=== PATIENT | female | born 1995 | race Caucasian/White ===

== ENCOUNTER 2017-09-16 07:00 | Day surgery (SDC) | payer OTHER ==
[~2017-09-16 07:00] MED LIST: BACTRIM DS 8001 TAB PO; HYDROXYZINE 25M25 MG PO; MOTRIN600 M1 PO; NUVARING1 ICR VG; PYRIDIUM100 MG PO; SERTRALINE 50MG50 MG PO; ZANTAC 150150 MG PO
--- NOTE | 2017-09-16 08:16 | Operative Note ---
Upper GI Endoscopy Procedure date: 09/16/17 Date of : [birth year] Procedure:Upper GI Endoscopy Esophagogastroduodenoscopy with cold biopsies Indications: Ms. Amador is a 22-year-old female who is here for diagnostic upper endoscopy. She has had bloating and generalized abdominal pain with dyspepsia. She has had nausea, early satiety, lack of appetite and a 16 pound weight loss. She formerly had RIGHT upper quadrant abdominal pain. She had a unremarkable ultrasound of the abdomen and gallbladder. She formerly had some bright red rectal bleeding which stopped. She was taking omeprazole. She reports no heartburn or reflux. She has had no belching or dysphagia. She reports no melena. She did improve with the addition of MiraLAX plus Citrucel fiber bowel regimen but still has some obstipation/incomplete evacuation. She did have some recent emesis of her breakfast meal many hours later. Her celiac testing and lactose tolerance testing was unremarkable and negative. Performing Provider: Conchita Payne MD Referring Provider: Terence Gonzalez M.D. Sedation: Fentanyl 100 mg IV/Versed 6 mg IV Procedure: Prior to the procedure, a history and physical exam was performed, and patients medications and allergies were reviewed. The risks and benefits of the procedure and the sedation options and risks were discussed with the patient. All questions were answered and informed consent was obtained. The patient was brought to the procedure room. Patient identification and proposed procedure were verified by the physician and the nurse. The patient was placed in a left lateral decubitus position and the scope was passed under direct vision. Throughout the procedure, the patient's blood pressure, pulse, and oxygen saturations were monitored continuously. The endoscope was introduced through the mouth, and advanced to the second part of duodenum. The upper GI endoscopy was accomplished without difficulty. The patient tolerated the procedure well. Findings: The scope was passed directly into the upper esophagus and advanced to the third portion of the duodenum. The post bulbar duodenum and duodenal bulb were normal with normal mucosa and conniventes. The scope was withdrawn through a normal duodenal bulb and pylorus into the stomach. There was mild pylorospasm. There was also some mild linear erythema of the antrum consistent with linear reactive gastritis. The remainder of the antrum, body and fundus of the stomach were grossly normal. Upon retroflexion there was no hiatal hernia. 2 biopsies were taken in the antrum and along the lesser curvature for histology. The scope was then withdrawn into the esophagus. The remainder of the esophageal mucosa was normal. Immediate complications: None EBL (ml): 0 Impression: 1. 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 I will follow up the biopsies. We will discuss additional treatment options today. I would continue the fiber bowel regimen. at [id number]
[2017-09-16 14:05] VITALS: BP 105/52
== END 2017-09-16 09:15 | disposition home or self-care (01) ==
LOC: SDC 07:00
PROVIDERS: Internal Medicine Gastroenterology
PROC: 0DB78ZX Excision of Stomach, Pylorus, Via Natural or Artificial Opening Endoscopic, Diagnostic (ICD-10-PCS; 2017-09-16)
PROC: 0DB68ZX Excision of Stomach, Via Natural or Artificial Opening Endoscopic, Diagnostic (ICD-10-PCS; principal; 2017-09-16 08:00)
DX: K29.60 Other gastritis without bleeding (principal); K31.3 Pylorospasm, not elsewhere classified; Z79.899 Other long term (current) drug therapy